=== PATIENT | female | born 1970 | race Caucasian/White ===

== ENCOUNTER 2019-06-23 09:33 | Outpatient (CLI) | payer OTHER | END 2019-06-23 15:00 | disposition home or self-care (01) | LOC: LAB 09:33 | DX: D50.8 Other iron deficiency anemias (principal); I10 Essential (primary) hypertension; D47.2 Monoclonal gammopathy; C90.00 Multiple myeloma not having achieved remission; L25.5 Unspecified contact dermatitis due to plants, except food; L30.8 Other specified dermatitis ==

== ENCOUNTER 2023-11-05 15:26 | Outpatient (CLI) | payer OTHER ==
[2023-11-05 16:20] LABS: COL EPI 114 SECONDS (82-175)
== END 2023-11-05 15:27 | disposition home or self-care (01) ==
LOC: LAB 15:26
PROVIDERS: ATTEND Internal Medicine
DX: D68.9 Coagulation defect, unspecified (principal)

== ENCOUNTER 2023-11-26 11:55 | Outpatient (CLI) | payer OTHER ==
[2023-11-26 13:25] LABS: INR 0.99; PARTIAL THROMBOPLASTIN TIME 27.8 SECONDS (22.0-34.0); PROTHROMBIN TIME 10.8 SECONDS (9.0-11.5)
[2023-11-26 13:26] LABS: HEMATOCRIT 38.5 % (36.0-45.00); HEMOGLOBIN 12.9 g/dL (12.0-15.00); MEAN CELL VOLUME 89.2 fL (80.00-100.00); MEAN CORPUSCULAR HEMOGLOBIN 29.9 pg (27.00-32.0); MEAN CORPUSCULAR HGB CONC 33.5 g/dl (32.0-36.0); PLATELET COUNT 255 K/uL (150-450); RED BLOOD COUNT 4.32 M/uL (4.00-6.00); RED CELL DISTRIBUTION WIDTH 14.4 % (11.5-14.5)
[2023-11-30 13:06] LABS: FACTOR VIII ACTIVITY 100 % (56-140); VON WILLERBRAND ACTIVITY 146 % (50-200); VON WILLERBRAND ANTIGEN 140 % (50-200)
[2023-12-04 10:47] LABS: a:g ratio 1.6 (0.7-1.7); alpha 1 g 0.2 g/dL (0.0-0.4); alpha 2 0.6 g/dL (0.4-1.0); beta g 1.2 g/dL (0.7-1.3); gamma g 0.7 g/dL (0.4-1.8); globulin t 2.6 g/dL (2.2-3.9); prot total 6.7 g/dL (6.0-8.5)
== END 2023-11-26 12:08 | disposition home or self-care (01) ==
LOC: LAB 11:55
DX: D68.9 Coagulation defect, unspecified (principal)

== ENCOUNTER 2024-03-08 08:20 | Outpatient (CLI) | payer OTHER | END 2024-03-08 08:27 | disposition home or self-care (01) | LOC: EKG 08:20 | PROVIDERS: ATTEND Internal Medicine | DX: I10 Essential (primary) hypertension (principal) ==

== ENCOUNTER 2024-03-28 09:41 | Outpatient (CLI) | payer OTHER | END 2024-03-28 09:43 | disposition home or self-care (01) | LOC: SONOGRAMA 09:41 | PROVIDERS: ATTEND Pathology Anatomic Pathology & Clinical Pathology | DX: E04.1 Nontoxic single thyroid nodule (principal) ==